=== PATIENT | male | born 1975 | race Hispanic/Latino ===

== ENCOUNTER 2020-02-12 14:20 | Inpatient (IN) | payer SELFPAY ==
--- NOTE | 2020-02-12 14:56 | PDOC.FPRHP ---
Addendum entered and electronically signed by Casie Maxwell MD 02/12/20 17:00 : Mr Oro is a 44yo male with pmh of HTN presents with diverticulitis with microperforation. He was transferred from [place]. LLQ pain started yesterday. Has not eaten today. Denies fever, chills, nausea, vomiting or diarrhea. No hx of abdominal surgeries or colonoscopies. PE: General: NAD CV: RRR, no murmurs Pulm: CTA bilaterally Abdomen: LLQ tenderness, no rebound or rigidity Extremities: No peripheral edema A/P: Diverticulitis with microperforation - WBC 25.5 CT: Sigmoid diverticulitis with microperforation - Gen Surg, Dr Woodson, consulted from the ED - Received Zosyn, Flagyl, Vanc in the ED. Will continue Zosyn. - Vishnu Toradol with Morphine 4mg for breakthrough. Will keep NPO. - Monitor labs - Admit to surgical floor Casie Maxwell MD PGY-3 Original Note: - History of Present Illness Chief Complaint: Abdominal Pain History of Present Illness: 44yo male with pmh of HTN presents as a transfer from [place] for diverticulitis with microperforation. Reports left sided abdominal pain started gradually yesterday then it became so painful he couldn't sleep. Denies fever, chills, nausea, vomiting. Reports diarrhea after antibiotics. No hx of colonoscopy. Has not eaten yet today. ED Course: [place]: Toradol 30mg, Zosyn 3.38g, Flagyl 500mg, [facility]: Vanc 1g - Allergies/Adverse Reactions Allergies Allergy/AdvReac Type Severity Reaction Status Date / Time No Known Allergies Allergy Unverified 02/12/20 15:08 - History PMHx: HLD PSHx: Denies FHx: Denies FH of colon cancer Social: Smokes 1/2ppd for 10-15yrs. Occasional alcohol use. Denies drug use. - Review of Systems General: denies: fever/chills, night sweats Eyes: denies: eye pain, vision changes ENT: denies: nasal congestion, rhinorrhea Respiratory: reports: shortness of breath (from abdominal pain). denies: cough Cardiovascular: denies: chest pain, edema Gastrointestinal: reports: diarrhea, abdominal pain. denies: nausea, vomiting, GI bleeding Genitourinary: denies: incontinence, dysuria, polyuria Skin: denies: rashes, lesions Musculoskeletal: denies: pain, swelling Neurological: denies: other (endorses mild headache. Denies dizziness) - Vital signs BP: 116/74 HR: 78 RR: 22 Tmax: 98.4 Pox: 96% on RA Wt: 126kg - Physical Exam Constitutional: NAD, awake, alert and oriented, well developed HEENT: normocephalic and atraumatic, conjunctiva clear, no scleral icterus, MMM , oropharynx clear Neck: supple, trachea midline Heart: RRR, normal S1/S2, no edema Lungs: CTAB, no respiratory distress Musculoskeletal: normal structure, normal tone Neurological: no focal deficit Skin: no rash/lesions, good turgor Heme/Lymphatic: no unusual bruising or bleeding Psychiatric: normal mood and affect, good judgment and insight, intact recent and remote memory FMR H&P: Results - Radiology Interpretation CT scan - abdomen Status: report reviewed by me Additional comment: CT: Diverticulitis with microperforation, no free air FMR H&P: A/P - Plan Plan: Patient is a 44 year old M with no PMH who we are admitting to surgery due to diverticulitis with microperforation. 1) Diverticulitis with Microperforation WBC [address]: diverticulitis with microperforation, no free air - Covering with Zosyn 3.375g IVP Q6h - Surgery Dr. Woodson consulting - Patient NPO, no PO intake today - 4mg morphine IVP q6hr and toradol 15mg IVP q8 PRN for pain - admit to surgery Dispo: home Diet: NPO Prophylaxis: SCDs FULL CODE I have discussed this case with Dr. Zaragoza. FMR H&P: Upper Level - Plan Date/Time: 02/12/20 8707 I, [], have evaluated this patient and agree with findings/plan as outlined by internet sales representative resident. Pertinent changes/additions are listed here. Addendum - Attending - Attending Attestation Date/Time: 02/12/20 8771 I personally evaluated with assistance of vulcan crewmember the patient and discussed the management with Dr. Pan I agree with the History, Examination, Assessment and Plan documented above with any addition or exceptions noted below. 44 yo Greek speaking Male transferred from outside hospital with one day LLQ pain. Patient diagnosed with sigmoid diverticulitis with microperforation he is to be admitted held NPO pain control and I agree with zosyn as adequate coverage. General surgery consulted. Abdomen obese tender LLQ BS diminished guarding no rebbouns soft, Scar RLQ from injury with wire other than obesity and smoker no other comorbid conditions identified by me.
[2020-02-12] MEDS ORDERED: Fentanyl 100 MCG/2 ML VIAL ONE (15:31)
[2020-02-12] MEDS ORDERED: Calcium Carbonate 500 MG ChewTAB PO PRN (18:05)
[2020-02-12] MEDS ORDERED: Ondansetron ODT 4 MG TAB PO PRN (18:05)
[2020-02-12] MEDS ORDERED: Ondansetron PF 4 MG/2 ML Vial IVP PRN (18:05)
[2020-02-12] MEDS ORDERED: Piperacillin/Tazobactam 3.375 GM in Sodium Chloride 0.9% 100 ML IVPB SCH (18:15)
[2020-02-12] MEDS ORDERED: Nicotine 14 MG PATCH TD PRN (18:30)
[2020-02-12] MEDS: Lactated Ringer's 1,000 ML IV SCH (18:37)
[2020-02-12] MEDS: Morphine 4 MG/ML VIAL SLOW IVP PRN ×2 (18:40→22:07)
[2020-02-12 19:37] VITALS: BMI 46.9
[2020-02-12] MEDS ORDERED: Ketorolac Tromethamine 30 MG/ML VIAL IVP SCH (20:00)
[2020-02-13] MEDS: Piperacillin/Tazobactam 3.375 GM in Sodium Chloride 0.9% 100 ML IVPB SCH ×4 (01:02→17:49)
[2020-02-13] MEDS: Lactated Ringer's 1,000 ML IV SCH ×4 (03:14→16:37)
[2020-02-13 05:25] LABS: #Eosinphils 0.1 thou/uL (0.0-0.7); #Lymphocytes 2.8 thou/uL (1.20-3.40); #Monocytes 1.1 thou/uL (0.11-0.59); %Basophils 0.3 % (0.0-1.0); %Eosinophils 0.9 % (0.0-10.0); %Lymphocytes 19.6 % (21.0-51.0); %Monocytes 8.1 % (0.0-10.0); %Neutrophils 71.2 % (42.0-75.0); Hemoglobin 14.2 g/dL (14.0-18.0); Mean Corpuscular HGB CONC 33.5 g/dL (32.0-36.0); Mean Corpuscular Hemoglobin 30.3 pg (27.0-31.0); Mean Corpuscular Volume 90.6 fL (78.0-98.0); Platelet Count 281 thou/uL (130-400); RBC Distribution Width 12.9 % (11.5-14.5); Red Blood Cell (RBC) Count 4.68 mill/uL (4.70-6.10)
[2020-02-13] MEDS: Ketorolac Tromethamine 30 MG/ML VIAL IVP SCH ×3 (05:27→21:52)
--- NOTE | 2020-02-13 05:29 | PDOC.FM ---
- Subjective Subjective: Patient resting in bed. Notes that his abdominal pain is a 7/10, slightly improved from yesterday. Denies N/V. No fever or chills. - Objective MAR Reviewed: Yes Vital Signs & Weight: Vital Signs (12 hours) Temp Pulse Resp BP Pulse Ox 02/12/20 23:06 97.6 F 71 16 103/66 95 02/12/20 19:09 98.0 F 78 16 108/70 96 Weight Weight 136 kg Result Diagrams: 02/13/20 05:08 02/13/20 05:08 Phys Exam - Physical Examination Constitutional: NAD HEENT: PERRLA, moist MMs Respiratory: clear to auscultation bilateral Cardiovascular: RRR Gastrointestinal: soft, no distention, positive bowel sounds TTP LLQ & LUQ, guarding, no rebound Musculoskeletal: no edema Neurological: non-focal, normal sensation, moves all 4 limbs Psychiatric: A&O x 3 Skin: no rash, normal turgor Dx/Plan - Plan Plan: Plan: Patient is a 44 year old M with no PMH who we are admitting to surgery due to diverticulitis with microperforation. 1) Diverticulitis with Microperforation WBC [address]: diverticulitis with microperforation, no free air - Surgery Dr. Woodson consulting, appreciate their recs - Covering with Zosyn - per surg recs, once pain resolves switch to cipro and flagyl, can d/c home with this for 14 days - will follow up in 2 weeks with general surgery after d/c - 4mg morphine IVP q6hr and toradol 15mg IVP q8 PRN for pain - advancing diet as tolerated Dispo: home Diet: advancing diet Prophylaxis: SCDs FULL CODE I have discussed this case with Dr. Zaragoza. Addendum - Attending - Attending Attestation Date/Time: 02/13/20 7482 I personally evaluated the patient and discussed the management with Dr. Pan I agree with the History, Examination, Assessment and Plan documented above with any addition or exceptions noted below.
[2020-02-13 05:43] LABS: Anion Gap 9 mmol/L (10-20); BUN (Urea Nitrogen) 10 mg/dL (8.9-20.6); Calc. Creatinine Clearance 172 mL/min (70-130); Calcium 8.3 mg/dL (7.8-10.44); Carbon Dioxide 32 mmol/L (22-29); Chloride 103 mmol/L (98-107); Estimated GFR-MDRD 78; Glucose 101 mg/dL (70-105); Sodium 140 mmol/L (136-145)
--- NOTE | 2020-02-13 06:10 | CON ---
DATE OF CONSULTATION: 02/12/2020 REQUESTING PHYSICIAN: Dr. Maxwell. REASON FOR CONSULTATION: Diverticulitis with microperforation, no free air. HISTORY OF PRESENT ILLNESS: This is a 44-year-old gentleman, who presented to [facility] for left lower quadrant pain that started earlier today. The patient does report having this left upper quadrant pain off and on for 2 days. The patient was transferred from [facility] for further evaluation and definitive care. The patient denies any nausea or vomiting. The patient also denies any fever, chills, cough, or cold. The patient did have a bowel movement this morning that was somewhat loose. The patient normally has 2 to 3 bowel movements a day. The patient denies any urinary issues. The patient is unable to describe what the pain feels like, states it is off and on. The patient currently denies any abdominal pain at this time. The patient states it does increase with movement, which is worse in the left lower quadrant. REVIEW OF SYSTEMS: A 10-point review of systems is negative unless otherwise indicated in the above HPI. PAST MEDICAL HISTORY: Denies. MEDICATIONS: Denies. ALLERGIES: DENIES. SOCIAL HISTORY: The patient smokes approximately one pack per 2 to 3 days, the patient reports alcohol use, which is beer a couple of times a week. The patient denies any illicit drug use. PAST SURGICAL HISTORY: Denies. PHYSICAL EXAMINATION: VITAL SIGNS: Blood pressure 103/66, temperature 97.6, pulse 71, respirations 16 , and SpO2 of 95% on room air. GENERAL: Middle-aged male, awake, alert, in no distress. HEENT: Head is atraumatic and normocephalic. Mucous membranes are moist. RESPIRATORY: Equal chest rise and fall, bilateral breath sounds clear, no wheezing, rales, or rhonchi. CARDIOVASCULAR: Regular rate, regular rhythm, no murmurs. EXTREMITIES: No pedal edema. ABDOMEN: Left lower quadrant tenderness, greater than left upper quadrant. Abdomen is soft, no peritoneal signs, active bowel sounds. EXTREMITIES: No focal deficits. Neurovascularly intact x4. LABORATORY DATA: WBC 25.5 obtained from [facility]. Procalcitonin 3.01. Morning labs are pending. DIAGNOSTIC STUDIES: Abdominal CT, impression; sigmoid diverticulitis with microperforation. Dr. Woodson did review the CT scans. IMPRESSION: Diverticulitis. RECOMMENDATIONS: IV antibiotics. We will add Cipro 400 mg IV b.i.d. and Metronidazole IV 500 mg IV Q 8 hours. Once the patient's pain is resolved, may switch the patient to both antibiotics p.o. Once the patient is ready for discharge, continue both Cipro and metronidazole for 14 days. The patient to follow up with General Surgery in 2 weeks. There is no surgical indication at this time. If the patient fails antibiotic treatment, then can consider surgical intervention at that time. Thank you for the consult. Let us know if you have any questions. The patient was examined by Dr. Woodson and plan was made with Dr. Woodson. Job ID: [id number] [facility]
[2020-02-13] MEDS: Morphine 4 MG/ML VIAL SLOW IVP PRN (09:17)
--- NOTE | 2020-02-13 20:42 | PRG ---
DATE OF SERVICE: 02/13/2020 SUBJECTIVE: Mr. Oro is a 44-year-old morbidly obese man, who was admitted with acute sigmoid colon diverticulitis with perforation, but no abscess. This morning, the patient reports 3/10 abdominal pain. He denies any nausea or vomiting. He has not passed any flatus or had bowel movement since admission. OBJECTIVE: VITAL SIGNS: This morning included blood pressure 104/65, pulse 69, respiratory rate 16, temperature 97.8 degrees Fahrenheit, oxygen saturation 95% on room air. ABDOMEN: Soft and obese. He has [id number] left lower quadrant abdominal tenderness to palpation. He clearly has no peritoneal signs on examination. NEUROLOGIC: Reveals no focal deficits present. LABORATORY FINDINGS: Include CBC with 14,000 white blood cells, hemoglobin and hematocrit 14.2 and 42.4 respectively. Platelet count 281,000. IMPRESSION: Acute diverticulitis with microperforation. PLAN: 1. Continue with antibiotic therapy. The patient is currently on metronidazole. We will add fluoroquinolone. 2. We will initiate clear-liquid diet and advance diet as tolerated, especially if there is any return of bowel function. 3. If the patient achieves return of bowel function, tolerating diet, we will convert antibiotic therapy to p.o. fluoroquinolone and metronidazole so long as there is no fever or exacerbation of abdominal pain. 4. The patient indicates understanding information provided in the presence of the nurse and his at bedside. 5. There is no acute surgical indication at this time. Job ID: [id number]
[2020-02-13] MEDS ORDERED: Sodium Chloride 0.9% 10 ML ONE (21:42)
[2020-02-14] MEDS: Piperacillin/Tazobactam 3.375 GM in Sodium Chloride 0.9% 100 ML IVPB SCH (00:34)
[2020-02-14] MEDS: Lactated Ringer's 1,000 ML IV SCH ×2 (00:39→07:30)
[2020-02-14] MEDS: metroNIDAZOLE 500 MG in Premix Bag 1 BAG IVPB SCH ×2 (02:26→09:42)
--- NOTE | 2020-02-14 03:29 | PRG ---
DATE OF SERVICE: 02/13/2020 SUBJECTIVE: The patient was seen during evening rounds, resting comfortably. According to the patient's nurse, he is tolerating a clear liquid diet. The patient has voiced to the nurse he is ready to go home. The patient continues to have some mild left upper quadrant pain. The patient continues to receive IV antibiotics. OBJECTIVE: VITAL SIGNS: Stable, afebrile. PLAN: DC Zosyn and start the patient on Cipro instead 400 mg IV q.12 hours and also Flagyl 500 mg q.8 hours. Once the patient is not having pain, he may be switched to oral Flagyl and Cipro. Once the patient is discharged home, he needs to be on Flagyl and Cipro for 14 days. The patient can follow up with General Surgery Clinic. The plan was discussed with Dr. Woodson. Please let us know if you have any questions. Job ID: [id number]
[2020-02-14] MEDS ORDERED: Sodium Chloride 0.9% 10 ML ONE (05:46)
[2020-02-14 05:47] LABS: Band 2 % (5-11); Eosinophils 2 % (0-10); Hemoglobin 14.1 g/dL (14.0-18.0); Lymphocytes 31 % (21-51); MDiff Complete? YES; Mean Corpuscular HGB CONC 31.7 g/dL (32.0-36.0); Mean Corpuscular Hemoglobin 28.4 pg (27.0-31.0); Mean Corpuscular Volume 89.8 fL (78.0-98.0); Mean Platelet Volume 8.2 fL (7.4-10.4); Monocytes 11 % (0-10); Neutrophil 53 % (42-75); Platelet Count 293 thou/uL (130-400); RBC Distribution Width 12.5 % (11.5-14.5); Reactive Lymphocytes 1 % (0-10); Red Blood Cell (RBC) Count 4.95 mill/uL (4.70-6.10); White Blood Cell (WBC) Count 8.6 thou/uL (4.8-10.8)
[2020-02-14] MEDS: Ketorolac Tromethamine 30 MG/ML VIAL IVP SCH (06:11)
--- NOTE | 2020-02-14 06:45 | PDOC.FM ---
- Subjective Subjective: The patient denies pain overnight. + BM x 1. Reports increased urination but no dysuria or hematuria. He denies SOB or paroxysmal nocturnal dyspnea. He denies nausea, vomiting or abdominal pain since advancing diet to clear liquids. - Objective MAR Reviewed: Yes Vital Signs & Weight: Vital Signs (12 hours) Temp Pulse Resp BP Pulse Ox 02/14/20 03:11 97.7 F 63 16 132/80 100 02/14/20 00:30 98 02/13/20 23:31 97.4 F L 65 15 116/77 92 L 02/13/20 20:20 96 02/13/20 19:19 97.7 F 67 18 130/84 96 Weight Weight 136 kg Patient was placed on 2L NC last night due to drop in oxygen sats. Pulse ox is now 96% on RA. I&O: 02/12/20 02/13/20 02/14/20 06:59 06:59 06:59 Intake Total 5180 Balance 5180 Result Diagrams: 02/14/20 05:13 02/13/20 05:08 Phys Exam - Physical Examination Constitutional: NAD HEENT: PERRLA, moist MMs Neck: no nodes, supple Respiratory: no wheezing, clear to auscultation bilateral Cardiovascular: RRR, no significant murmur Gastrointestinal: soft LLQ tenderness to palpation. No rebounding or guarding. Musculoskeletal: no edema, pulses present Neurological: non-focal, moves all 4 limbs Lymphatic: no nodes Psychiatric: normal affect, A&O x 3 Skin: no rash, normal turgor Dx/Plan - Plan Plan: 1. Diverticulitis with microperforation WBC 26 initially, now 8.6. Abdominal CT showed diverticulitis with microperforation and no free air. Dr. Woodson consulting. No surgical intervention recommended. -Zosyn was discontinued and patient started on Flagil 500 IV Q8H per surgery. -Continue Cipro IV -Discontinue LR since patient is tolerating PO -Advance diet as tolerated. -Pain control: Not required Morphine 4mg IV Q6H in the past day. Given Toradol 15mg IV Q8H PRN once overnight. Will dc Toradol and switch to oral NSAID. -Once diet is tolerated, patient will be placed on cipro and flagyl PO for 14 days -Will f/u with surgery outpatient 2 weeks after discharge 2. Suspect SAMMY Patient's pulse ox dropped to 92% requiring 2L NC overnight. He denies SOB or paroxysmal nocturnal dyspnea. -Follow up with PCP PCP: [facility] Code: Full PPx: SCDs Dispo: Home pending continued pain control. Addendum - Attending - Attending Attestation Date/Time: 02/14/20 5672 I personally evaluated the patient and discussed the management with Dr. Stephenson. I agree with the History, Examination, Assessment and Plan documented above with any addition or exceptions noted below. Patient feeling well. Reports no issues with diet toleration. Will discuss with surgery but likely home later today to complete course of PO abx and f/u with them outpatient.
[2020-02-14] MEDS ORDERED: Ibuprofen 800 MG TAB PO PRN (08:53)
[2020-02-14 12:22] VITALS: BP 129/86; TEMP 97.9
--- NOTE | 2020-02-14 17:40 | PRG ---
DATE OF SERVICE: 02/14/2020 SUBJECTIVE: The patient was seen this morning during rounds. He was lying in bed with no signs of acute distress. He reported no abdominal pain, passing flatus and gas, tolerating a regular diet. The patient has been afebrile and white count has improved to normal. OBJECTIVE: VITAL SIGNS: Temperature 97.5, pulse 75, respirations 14, oxygen saturation 95% on room air, and blood pressure 146/86. GENERAL: Well-appearing middle-aged male, lying in bed with no signs of acute distress. PULMONARY: Equal chest rise and fall. Clear breath sounds bilaterally. No signs of acute respiratory distress. CARDIAC: Regular rate and rhythm. GI: Abdomen is soft, nontender, nondistended. He has positive active bowel sounds throughout the abdominal field. EXTREMITIES: 2+ pulses in all extremities. Gross motor and sensation intact. No significant swelling noted. NEUROLOGIC: GCS is 15. LABORATORY FINDINGS: White count 8.6, hemoglobin 14.1, hematocrit 44.4, platelets 293. DIAGNOSTIC FINDINGS: There are no new diagnostic findings to report. ASSESSMENT: Acute diverticulitis with microperforation. PLAN: The patient is now tolerating a regular diet. He can be discharged at the disposition of the admitting service. He is to have Cipro and Flagyl for total of 14 days and he can follow up in the General Surgery Clinic. He does not need to follow up with Dr. Woodson. This patient was discussed with Dr. Woodson before this dictation. His service is now signing off. Job ID: [id number]
--- NOTE | 2020-02-15 00:30 | DIS ---
DATE OF ADMISSION: 02/12/2020 DATE OF DISCHARGE: 02/14/2020 RESIDENT: Raquel Stephenson MD. ADMITTING ATTENDING: Dr. Salvador Zaragoza. DISCHARGE ATTENDING: Aris Bright MD. CONSULTS: General Surgery, Dr. Andrzej Woodson. PROCEDURES: None. PRIMARY DIAGNOSIS: Acute diverticulitis with microperforation. SECONDARY DIAGNOSIS: Suspected obstructive sleep apnea. DISCHARGE MEDICATIONS: 1. Flagyl 500 p.o. q.8 hours. 2. Cipro 500 q.12 hours. 3. Ibuprofen 800 q.8 hours p.r.n. Discontinued medications: None. HOSPITAL COURSE: Ruel Oro is a 44-year-old male with history of hypertension, who presented to the ED from [place] with diverticulitis with microperforation. White blood cell count was initially 26. Abdominal CT showed diverticulitis with microperforation and no free air. Prior to arrival, the patient was prescribed Zosyn and Flagyl. In the ED, he was given one dose of vancomycin. He was placed on morphine 4 mg q.6 and Toradol 15 mg q.8 as needed for pain. Dr. Woodson, General Surgery, was consulted. He recommended no surgery interventions. Zosyn was discontinued. Cipro was prescribed and Flagyl continued. The patient was initially on lactated ringer's which was discontinued when he tolerated p.o. Diet was advanced. The patient tolerated a normal diet prior to discharge. Morphine and Toradol were no longer required. Toradol was switched to NSAID for discharge. The patient was placed on Cipro and Flagyl p.o. for 14-day completion. Upon discharge, he will follow up with PCP and Surgery outpatient. During admission, patient's pulse was noted to drop to 92% requiring 2 L nasal cannula overnight. He denies any symptoms or history of sleep apnea; however, this should be followed up by PCP as outpatient. DISPOSITION: Stable. DISCHARGE INSTRUCTIONS: Location: Home. Diet: Heart healthy. Activity: As tolerated. Followup: Follow up with PCP in 3 to 5 days, Surgery in 2 weeks. Job ID: [id number]
== END 2020-02-14 17:15 | disposition home or self-care (01) | DRG 392 ==
LOC: ERS 14:20 → SURG B 16:26
PROVIDERS: ADMIT Surgery; ATTEND Surgery
DX: K57.20 Diverticulitis of large intestine with perforation and abscess without bleeding (principal); Z68.42 Body mass index [BMI] 45.0-49.9, adult; G47.33 Obstructive sleep apnea (adult) (pediatric); I10 Essential (primary) hypertension; E78.5 Hyperlipidemia, unspecified; E66.01 Morbid (severe) obesity due to excess calories
CPT/HCPCS: 36415; 80048; 84145; 85007; 85025; 85027; J0744; J1885; J2270; J2543; J3010; J3370; J3490; J7030